=== PATIENT | female | born 1995 | race Two or more races ===

== ENCOUNTER 2024-05-08 11:19 | Emergency (ER) | payer OTHER, SELFPAY ==
[2024-05-08 11:19] VITALS: BMI 39.4
[2024-05-08 11:37] VITALS: BP 148/94; PULSE 74; RESP 18; TEMP 37.1; O2SAT 100
[2024-05-08] MEDS: KETOROLAC INJ 30 MG/ML VIAL IM (11:40)
--- NOTE | 2024-05-08 11:52 | EDNOTE_ITS ---
<Statement entered by Sindhu Oneil MD - 05/08/24 17:53> As co-signing physician, I was present and available for consult prn. I concur with the plan and care as documented by the midlevel provider. ED Back Injury Pain RME/HPI General Chief Complaint: Back Pain/Injury Stated Complaint: BACK INJURY AT WORK TODAY Time Seen by Provider: 05/08/24 11:22 Arrival date/time: 05/08/24 11:19 28-year-old female presents emergency department complains of back pain at work today patient reports she was working and was lifting heavy poles and developed pain in the lower back Limitations: no limitations Related Data Home Medications ?Medication ?Instructions ?Recorded ?Confirmed famotidine 20 mg tablet 20 mg PO DAILY 04/19/21 04/20/21 Previous Rx's ?Medication ?Instructions ?Recorded ondansetron HCl 4 mg tablet 4 mg PO Q8H #20 tabs 03/27/21 (Zofran) docusate sodium 100 mg capsule 100 mg PO BID #40 caps 04/20/21 (Colace) hydrocodone 5 mg-acetaminophen 325 1 tab PO Q6H PRN pain (scale score 04/20/21 mg tablet 7-10) #20 tabs ibuprofen 600 mg tablet 600 mg PO Q8H PRN pain (scale 04/20/21 score 4-6) #15 tabs cyclobenzaprine 10 mg tablet 10 mg PO TID PRN muscle spasm 10 05/08/24 days #30 tab-caps ibuprofen 800 mg tablet 800 mg PO TID PRN pain #30 tabs 05/08/24 Allergies Allergy/AdvReac Type Severity Reaction Status Date / Time bee venom protein (honey bee) Allergy Severe Swelling Verified 05/08/24 11:21 of Lip/Tongue/Throat latex Allergy Rash Verified 05/08/24 11:21 Review of Systems Review of Systems Systems Reviewed: All systems reviewed, normal except as documented Constitutional Constitutional: Reports system reviewed and no additional complaints, except as documented, Denies fever(s) and Denies headache(s) Eyes Eyes: Reports system reviewed and no additional complaints, except as documented and Denies blurry vision ENT Ears, Nose, Mouth, and Throat: Reports system reviewed and no additional complaints, except as documented, Denies headache(s), Denies nasal congestion and Denies nasal discharge Cardiovascular Cardiovascular: Reports system reviewed and no additional complaints, except as documented, Denies chest pain and Denies dyspnea Respiratory Respiratory: Reports system reviewed and no additional complaints, except as documented, Denies chest congestion, Denies cough and Denies dyspnea Gastrointestinal Gastrointestinal: Reports system reviewed and no additional complaints, except as documented and Denies abdominal pain Musculoskeletal Musculoskeletal: Reports system reviewed and no additional complaints, except as documented and Reports back pain Integumentary/Breasts Skin/Breast: Reports system reviewed and no additional complaints, except as documented and Denies rash Neurologic Neurologic: Reports system reviewed and no additional complaints, except as documented, Reports as per HPI and Denies headache(s) Past Medical History Past Medical History NEUROLOGIC: Negative Neurological Disorders CARDIAC: Negative Cardiac Disorders ED Exam General Limitations: Present no limitations General appearance: Present alert and in no apparent distress Head Head exam: Present atraumatic, normocephalic and normal inspection Eye Eye exam: Present normal appearance, PERRL and EOMI; Absent conjunctival injection ENT ENT exam: Present normal exam, normal oropharynx and mucous membranes moist Neck Neck exam: Present normal inspection, full ROM and trachea midline Chest Chest inspection: Present normal inspection and symmetric chest wall rise Respiratory Respiratory exam: Present normal lung sounds bilaterally Cardiovascular Cardiovascular exam: Present regular rate, normal rhythm and normal heart sounds Abdominal Exam Abdominal exam: Present soft and normal bowel sounds; Absent distention, tenderness, guarding, rebound or rigidity Extremities Exam Extremities exam: Present normal inspection and full ROM Back Exam Back exam: Present normal inspection, full ROM, tenderness and muscle spasm; Absent CVA tenderness (R) or CVA tenderness (L) Neurological Exam Neurological exam: Present alert, oriented X3 and CN II-XII intact Psychiatric Psychiatric exam: Present normal affect and normal mood Skin Skin exam: Present warm, dry, intact and normal color Course Quality Measures none Orders Category Date Time Status Ketorolac Inj [Toradol Inj] Med 05/08/24 11:36 Discontinued 30 mg IM X1 ONE Vital Signs Vital signs: Vital Signs Temperature 98.7 F 05/08/24 11:37 Pulse Rate 74 05/08/24 11:37 Respiratory Rate 18 05/08/24 11:37 Blood Pressure 148/94 H 05/08/24 11:37 Pulse Oximetry (%) 100 05/08/24 11:37 Oxygen Delivery Method Room Air 05/08/24 11:37 O2 saturation 100% on room air with normal limits Back Pain / Injury MDM Narrative MDM Narrative:: 28-year-old female presents emergency department complains of back pain at work today patient reports she was working and was lifting heavy poles and developed pain in the lower back On exam patient has tenderness of lower back worse with movement patient reports no direct trauma Patient given Toradol for pain discharged home with medication Patient reports no chance of no dysuria no polyuria Patient discharged home in no distress to follow-up with primary care doctor in the next 24 to 48 hours and for any worsening symptoms to return to the ER immediately Patient data External records reviewed:: [facility] previous records Clinical information provided by:: patient Social determinants that could affect healthcare access:: none Patient has the following chronic illnesses:: None How is presenting disease/condition affected by chronic disease/condition?: no chronic disease Evaluation data The following diagnostics were reviewed and interpreted by me:: other (specify) (N/A) Lab and/or radiology exams considered but not ordered:: Consider not ordered Interpretation Summary: N/A Medications / Prescriptions Medications or Prescriptions considered but not ordered:: Given Medication administrations:: Medication Administration History Discontinued Medications Ketorolac Tromethamine (Ketorolac Inj 30 Mg/Ml Vial) 30 mg IM X1 ONE Stop: 05/08/24 11:37 Last Admin: 05/08/24 11:40 Dose: 30 mg Documented By: DB Given Consultations Consultation(s) initiated? (list below): No Diagnosis Differential diagnosis back pain/injury: lumbar radiculopathy, sciatica, strain of lumbar region, pyelonephritis and thoracic back pain Most likely diagnosis given after review of the tests above:: Back pain Admission Indicated Admission indicated?: not indicated Admission Request Was there a request for admission?: No Disposition Plan Disposition Plan: Discharge Discharge Attestation Discharge Attestation: The patient and all family members were given an opportunity to ask questions and understood the discharge instructions. Discharge instructions specifically effects, indications for sooner follow up or return to the emergency department, and the expected course of current diagnosis. Patient condition: Stable Discharge Plan Plan Patient Disposition: HOME (Self Care) Disposition Comment: Stable Prescriptions/Referrals Prescriptions/Med Rec: New cyclobenzaprine 10 mg tablet 10 mg PO TID PRN (Reason: muscle spasm) 10 Days Qty: 30 0RF ibuprofen 800 mg tablet 800 mg PO TID PRN (Reason: pain) Qty: 30 0RF No Action ondansetron HCl [Zofran] 4 mg tablet 4 mg PO Q8H Qty: 20 0RF famotidine 20 mg tablet 20 mg PO DAILY hydrocodone-acetaminophen 5-325 mg tablet 1 tab PO Q6H MDD 4 PRN (Reason: pain (scale score 7-10)) Qty: 20 0RF docusate sodium [Colace] 100 mg capsule 100 mg PO BID Qty: 40 0RF ibuprofen 600 mg tablet 600 mg PO Q8H PRN (Reason: pain (scale score 4-6)) Qty: 15 0RF Problem List Clinical Impression: Back muscle spasm, Work related injury Patient/Caregiver Discharge Instructions Education Materials: Back Safety: Bending Additional Instructions: Please follow up with your primary care doctor in the next 24-48hrs for any worsening symptoms return here immediately Print Language: Greek Stand Alone Forms: Luz Maria Award Info., Patient Portal Info Letter PA/PACS SPECIALIST Supervising Physician PA/PACS SPECIALIST Supervising Physician: Dr. ONEIL
== END 2024-05-08 12:57 | disposition home or self-care (01) ==
LOC: SERX 12:43
PROVIDERS: Emergency Provider Emergency Medicine; PCP Internal Medicine
DX: S39.92XA Unspecified injury of lower back, initial encounter (principal); M62.830 Muscle spasm of back; X50.0XXA Overexertion from strenuous movement or load, initial encounter; Y99.0 Civilian activity done for income or pay
CPT/HCPCS: 96372; 99283; J1885

== ENCOUNTER 2024-08-19 07:08 | Emergency (ER) | payer OTHER, SELFPAY ==
[2024-08-19 07:10] VITALS: BMI 38.0
[2024-08-19 07:27] VITALS: BP 115/79; PULSE 61; RESP 19; TEMP 36.7; O2SAT 100
--- NOTE | 2024-08-19 07:28 | XR_ITS ---
Examination: Thoracic spine 3 views Technique one AP lateral coned lateral upper spine 3 views Exam date and time: August 19, 2024 11:04 AM INDICATIONS: Lifting injury today to the back with back pain FINDINGS: Mild kyphosis dorsal spine No acute thoracic fracture Mild diffuse thoracic degenerative disc disease Mild thoracic spondylosis IMPRESSION: No acute thoracic fracture
--- NOTE | 2024-08-19 07:29 | EDNOTE_ITS ---
<Statement entered by Sindhu Oneil MD - 08/19/24 15:15> As co-signing physician, I was present and available for consult prn. I concur with the plan and care as documented by the midlevel provider. ED Back Injury Pain RME/HPI General Chief Complaint: Back Pain/Injury Stated Complaint: BACK INJURY AT WORK TODAY Time Seen by Provider: 08/19/24 07:19 Source: patient Arrival date/time: 08/19/24 07:08 29-year-old female with no known medical history presents to the emergency room with a chief complaint of mid back pain x 1 day. Patient states she was at work and was lifting poles and injured her back. Mode of arrival: ambulatory Limitations: no limitations Related Data Home Medications ?Medication ?Instructions ?Recorded ?Confirmed famotidine 20 mg tablet 20 mg PO DAILY 04/19/2104/07 Previous Rx's ?Medication ?Instructions ?Recorded ondansetron HCl 4 mg tablet 4 mg PO Q8H #20 tabs 03/27 (Zofran) docusate sodium 100 mg capsule 100 mg PO BID #40 caps 04/20/21 (Colace) hydrocodone 5 mg-acetaminophen 325 1 tab PO Q6H PRN pa in (scale score 04/20/21 mg tablet 7-10) #20 tabs ibuprofen 600 mg tablet 600 mg PO Q8H PRN pain (scal e 04/20/21 score 4-6) #15 tabs ibuprofen 800 mg tablet 800 mg PO TID PRN pain #30 t abs 05/08/24 Allergies Allergy/AdvReac Type Severity Reaction Status Date / Time bee venom protein (honey bee) Allergy Severe Swelling Verified 05/08/24 11:21 of Lip/Tongue/Throat latex Allergy Rash Verified 05/08/24 11:21 Review of Systems Review of Systems Systems Reviewed: All systems reviewed, normal except as documented Constitutional Constitutional: Reports system reviewed and no additional complaints, except as documented, Denies fatigue, Denies fever(s), Denies headache(s) and Denies weakness Eyes Eyes: Reports system reviewed and no additional complaints, except as documented, Denies blurry vision and Denies change in vision ENT Ears, Nose, Mouth, and Throat: Reports system reviewed and no additional complaints, except as documented, Denies otalgia, Denies headache(s), Denies nasal congestion, Denies throat swelling and Denies vertigo Cardiovascular Cardiovascular: Reports system reviewed and no additional complaints, except as documented, Denies chest pain, Denies dyspnea and Denies dyspnea on exertion Respiratory Respiratory: Reports system reviewed and no additional complaints, except as documented, Denies chest congestion, Denies cough, Denies dyspnea, Denies dyspnea on exertion and Denies wheezing Gastrointestinal Gastrointestinal: Reports system reviewed and no additional complaints, except as documented, Denies abdominal pain, Denies cramping, Denies nausea and Denies vomiting Genitourinary Genitourinary: Reports system reviewed and no additional complaints, except as documented Musculoskeletal Musculoskeletal: Reports system reviewed and no additional complaints, except as documented and Reports back pain Integumentary/Breasts Skin/Breast: Reports system reviewed and no additional complaints, except as documented and Denies wounds Neurologic Neurologic: Reports system reviewed and no additional complaints, except as documented, Denies confusion, Denies headache(s), Denies lack of coordination, Denies vertigo and Denies weakness Psychiatric Psychiatric: Reports system reviewed and no additional complaints, except as documented, Denies anxiety, Denies confusion, Denies depression, Denies paranoia, Denies suicidal ideation and Denies tactile hallucinations Endocrine Endocrine: Reports system reviewed and no additional complaints, except as documented and Denies fatigue Hematologic/Lymphatic Hematologic/Lymphatic: Reports system reviewed and no additional complaints, except as documented and Denies lymphadenopathy Allergic/Immunologic Allergic/Immunologic: Reports system reviewed and no additional complaints, except as documented, Denies throat swelling, Denies urticaria and Denies wheezing Past Medical History Past Medical History NEUROLOGIC: Negative Neurological Disorders or Seizures CARDIAC: Positive Cellulitis (HOLDEN ARMS SCRATCHES DUE TO DRY SKIN); Negative Cardiac Disorders, Congestive Heart Failure, Edema or Varicose Veins RESPIRATORY: Negative Chronic Obstructive Pulmonary Disease (COPD), Tuberculosis or Sleep Apnea GASTROINTESTINAL: Positive Gastrointestinal Disorders, Gall Bladder Disease (FOR THIS PROC), Gastroesophageal Reflux Disease (TAKES MED) and Obesity; Negative Hepatitis GENITOURINARY: Negative Genitourinary Disorders or Renal Disease MUSCULOSKELETAL: Negative Musculoskeletal Disorders ENDOCRINE: Negative Endocrine Disorders, Diabetes Mellitus Type 1 or Diabetes Mellitus Type 2 HEMATOLOGIC: Negative Blood Disorders or Clotting Problems OTHER HISTORY: Positive Chicken Pox; Negative Hospitalization, Autoimmune Disease, Shingles, Falls, Blood Transfusions, Blood Transfusion Reaction, Anesthesia Reactions, Chemotherapy, Radiation Therapy, MRSA, Measles, Mumps or Cancer Family History FAMILY HISTORY: Positive Family Cardiac Disorders (MOTHER (CVA,HTN)), Family Gas trointestinal Problems (MOTHER (GALL BLADDER)) and Family Surgery (MOTHER); Negative Family Psychiatric Problems, Family Respiratory Disorders, Family Cancer or Family Anesthesia Reaction Surgical History SURGICAL: Negative Pacemaker Social History SMOKING STATUS: Never smoker ED Exam General Limitations: Present no limitations General appearance: Present alert and in no apparent distress Head Head exam: Present atraumatic Eye Eye exam: Present normal appearance, PERRL and EOMI ENT ENT exam: Present normal exam, normal oropharynx and mucous membranes moist Neck Neck exam: Present normal inspection, full ROM and trachea midline Chest Chest inspection: Present normal inspection and symmetric chest wall rise Respiratory Respiratory exam: Present normal lung sounds bilaterally Cardiovascular Cardiovascular exam: Present regular rate, normal rhythm and normal heart sounds Abdominal Exam Abdominal exam: Present soft and normal bowel sounds Extremities Exam Extremities exam: Present normal inspection and full ROM Back Exam Back exam: Present normal inspection and full ROM Neurological Exam Neurological exam: Present alert, oriented X3 and CN II-XII intact Psychiatric Psychiatric exam: Present normal affect and normal mood Skin Skin exam: Present warm, dry, intact and normal color Course Quality Measures none Orders Category Date Time Status XR thoracic spine 3V Stat Exams 08/19/24 07:28 Completed HCG Qualitative,Urine Stat Lab 08/19/24 07:40 Completed Acetaminophen Tab [Tylenol Tab] Med 08/19/24 07:30 Discontinued 650 mg PO X1 ONE Ketorolac Inj [Toradol Inj] Med 08/19/24 09:55 Discontinued 30 mg IM X1 ONE Vital Signs Vital signs: Vital Signs Temperature 98.0 F 08/19/24 07:27 Pulse Rate 61 08/19/24 07:27 Respiratory Rate 19 08/19/24 07:27 Blood Pressure 115/79 08/19/24 07:27 Pulse Oximetry (%) 100 08/19/24 07:27 Oxygen Delivery Method Room Air 08/19/24 07:27 O2 saturation 100% within normal limits Back Pain / Injury MDM Narrative MDM Narrative:: 29-year-old female with no known medical history presents to the emergency room with a chief complaint of mid back pain x 1 day. Patient states she was at work and was lifting poles and injured her back. Patient is hemodynamically stable and in no apparent distress Physical examination shows pain and tenderness to the thoracic area of her spine. X-ray of the thoracic spine was completed and was negative for any acute fracture or dislocation Patient was discharged and educated to follow-up with primary care provider in the next 24 to 48 hours and return to the emergency room for any evidence of worsening signs or symptoms Patient data External records reviewed:: [facility] previous records Clinical information provided by:: patient Social determinants that could affect healthcare access:: none Patient has the following chronic illnesses:: No chronic illness How is presenting disease/condition affected by chronic disease/condition?: no chronic disease Evaluation data The following diagnostics were reviewed and interpreted by me:: lab results and radiology exam(s) Lab and/or radiology exams considered but not ordered:: Labs and radiology exams considered and ordered Interpretation Summary: Thoracic spine [id number]: Mild kyphosis dorsal spine No acute thoracic fracture Mild diffuse thoracic degenerative disc disease Mild thoracic spondylosis IMPRESSION: No acute thoracic fracture Medications / Prescriptions Medications or Prescriptions considered but not ordered:: Medication given Medication administrations:: Medication Administration History Discontinued Medications Acetaminophen (Acetaminophen 325 Mg Tablet) 650 mg PO X1 ONE Stop: 08/19/24 07:31 Last Admin: 08/19/24 07:40 Dose: 650 mg Documented By: NEREIDA Ketorolac Tromethamine (Ketorolac Inj 60 Mg/2 Ml Vial) 30 mg IM X1 ONE Stop: 08/19/24 09:56 Last Admin: 08/19/24 10:18 Dose: 30 mg Documented By: NEREIDA Medication given Consultations Consultation(s) initiated? (list below): No Diagnosis Differential diagnosis back pain/injury: lumbar radiculopathy, strain of lumbar region and thoracic back pain Most likely diagnosis given after review of the tests above:: Thoracic back pain Admission Indicated Admission indicated?: not indicated Admission Request Was there a request for admission?: No Disposition Plan Disposition Plan: Discharge Discharge Attestation Discharge Attestation: The patient and all family members were given an opportunity to ask questions and understood the discharge instructions. Discharge instructions specifically effects, indications for sooner follow up or return to the emergency department, and the expected course of current diagnosis. Patient condition: Stable Discharge Plan Plan Patient Disposition: HOME (Self Care) Disposition Comment: Stable Prescriptions/Referrals Prescriptions/Med Rec: No Action ondansetron HCl [Zofran] 4 mg tablet 4 mg PO Q8H Qty: 20 0RF famotidine 20 mg tablet 20 mg PO DAILY hydrocodone-acetaminophen 5-325 mg tablet 1 tab PO Q6H MDD 4 PRN (Reason: pain (scale score 7-10)) Qty: 20 0RF docusate sodium [Colace] 100 mg capsule 100 mg PO BID Qty: 40 0RF ibuprofen 600 mg tablet 600 mg PO Q8H PRN (Reason: pain (scale score 4-6)) Qty: 15 0RF ibuprofen 800 mg tablet 800 mg PO TID PRN (Reason: pain) Qty: 30 0RF Referrals: Anna cMkeon MD [Primary Care Provider] - In 1 week Problem List Clinical Impression: Thoracic back pain Patient/Caregiver Discharge Instructions Education Materials: ED Back Pain (Acute or Chronic) Additional Instructions: Please follow-up with your primary care provider in the next 24 to 48 hours. The x-ray of your spine was negative for any acute fracture or dislocation For any evidence of worsening signs or symptoms return to the emergency room immediately Print Language: Yoruba Stand Alone Forms: Luz Maria Award Info., Work/School Release, Patient Portal Info Letter JORGE L/JASMIN Supervising Physician JORGE L/JASMIN Supervising Physician: Dr. ONEIL
[2024-08-19] MEDS: ACETAMINOPHEN 325 MG TABLET 650 MG PO (07:40)
[2024-08-19 09:34] LABS: HCG Qualitative,Urine Negative
[2024-08-19 10:14] VITALS: BP 128/82; PULSE 58; RESP 16; TEMP 36.6; O2SAT 100
[2024-08-19] MEDS: KETOROLAC INJ 60 MG/2 ML VIAL 30 MG IM (10:18)
--- NOTE | 2024-08-19 10:19 | PC.NURSE ---
called xray for read @1016 spoke with Luis will make radiologist aware
[2024-08-19 11:43] VITALS: BP 125/65; PULSE 53; RESP 18; TEMP 36.7; O2SAT 100
== END 2024-08-19 11:45 | disposition home or self-care (01) ==
PROVIDERS: Nurse Practitioner Family; Emergency Provider Emergency Medicine; PCP Internal Medicine
DX: M54.6 Pain in thoracic spine (principal)
CPT/HCPCS: 72072; 81025; 96372; 99283; J1885; A9270